=== PATIENT | female | born 2000 | race Hispanic/Latino ===

== ENCOUNTER 2021-10-12 22:03 | Inpatient (IN) | payer OTHER ==
[2021-10-12 22:32] VITALS: BMI 28.6
[2021-10-12 23:02] LABS: Fetal Membranes Rupture No Membranes Rupture (No Rupture)
[2021-10-12] MEDS ORDERED: hydrALAZINE 20 MG/ML VIAL SLOW IVP PRN (23:45)
[2021-10-13 00:07] LABS: Fetal Membranes Rupture RUPTURE DETECTED (No Rupture)
[2021-10-13] MEDS ORDERED: Misoprostol 200 MCG TAB PR PRN (00:27)
[2021-10-13] MEDS ORDERED: Methylergonovine 0.2 MG/ML VIAL IM PRN (00:27)
[2021-10-13] MEDS ORDERED: Carboprost 250 MCG/ML AMP IM PRN (00:27)
[2021-10-13] MEDS ORDERED: Lidocaine 1% (PF) 30 ML VIAL SC PRN (00:27)
[2021-10-13] MEDS ORDERED: Promethazine HCl 25 MG/ML VIAL IM PRN (00:27)
[2021-10-13] MEDS ORDERED: Diphenoxylate HCl/Atropine Tablet PO PRN (00:27)
[2021-10-13] MEDS ORDERED: Ondansetron PF 4 MG/2 ML Vial IVP PRN (00:27)
[2021-10-13] MEDS ORDERED: hydrALAZINE 20 MG/ML VIAL SLOW IVP PRN (00:27)
[2021-10-13] MEDS ORDERED: Lactated Ringer's 1,000 ML IV SCH (00:30)
[2021-10-13] MEDS ORDERED: NS w/ Oxytocin 30 units 500 ML IV SCH ×2 (00:30)
[2021-10-13] MEDS: Misoprostol 100 MCG TAB PO SCH ×4 (02:54→17:42)
[2021-10-13 03:11] LABS: Hemoglobin 11.5 g/dL (12.0-15.5); Mean Corpuscular HGB CONC 33.7 g/dL (32.0-36.0); Mean Corpuscular Hemoglobin 27.6 pg (27.0-33.0); Platelet Count 239 10x3/uL (150-450); Red Blood Cell (RBC) Count 4.16 10x6/uL (3.90-5.03)
[2021-10-13 03:24] LABS: Syphilis Antibody Nonreactive (Nonreactive); Syphilis Antibody Index 0.02 S/CO (<1.00 Non-Reactive)
[2021-10-13 03:25] LABS: Hep B Surf Ag Non-Reactive S/CO (NonReactive)
[2021-10-13 03:26] LABS: HBSAg Index 0.26 S/CO (0-0.99)
[2021-10-13 07:22] LABS: SARS-CoV-2 NAA Rapid Test Not Detected (NotDetected)
[2021-10-14] MEDS: Butorphanol Tartrate 1 MG/ML VIAL SLOW IVP PRN ×2 (02:32→03:45)
[2021-10-14] MEDS ORDERED: Fentanyl 2 mcg/Bup 0.1% Cadd 100 ML ONE (04:36)
[2021-10-14] MEDS ORDERED: Ondansetron PF 4 MG/2 ML Vial IVP PRN ×2 (05:29→14:47)
[2021-10-14] MEDS ORDERED: Moisturizing Cream (Eucerin) 113 GM JAR TOP PRN (05:29)
[2021-10-14] MEDS ORDERED: Lactated Ringer's 500 ML IV PRN (05:29)
[2021-10-14] MEDS ORDERED: Promethazine HCl 25 MG/ML VIAL IM PRN (05:29)
[2021-10-14] MEDS ORDERED: diphenhydrAMINE 50 MG/ML VIAL IVP PRN (05:29)
[2021-10-14] MEDS ORDERED: ePHEDrine Sulfate 50 MG/10 ML VIAL SLOW IVP PRN (05:29)
[2021-10-14] MEDS ORDERED: Naloxone HCl 0.4 mg/ml Vial IVP PRN ×2 (05:29)
[2021-10-14] MEDS ORDERED: Acetaminophen 325 MG TAB PO PRN (05:29)
[2021-10-14] MEDS ORDERED: Communication Order-Pharmacy FS SCH (05:30)
[2021-10-14] MEDS ORDERED: Fentanyl 2 mcg/Bupivacaine 0.1% Cassette 100 ML EPIDURAL SCH (05:30)
[2021-10-14] MEDS ORDERED: Bupivacaine 0.25% HCL 30 ML VIAL ONE (06:00)
[2021-10-14] MEDS ORDERED: ePHEDrine Sulfate 50 MG/10 ML VIAL ONE (06:00)
[2021-10-14] MEDS ORDERED: Lidocaine 1% (PF) 30 ML VIAL ONE (10:41)
[2021-10-14] MEDS ORDERED: HYDROcodone/Acetaminophen 5/325 mg Tablet PO PRN ×2 (14:47)
[2021-10-14] MEDS ORDERED: NS w/ Oxytocin 30 units 500 ML IV SCH (14:47)
[2021-10-14] MEDS ORDERED: Misoprostol 200 MCG TAB VAG PRN (14:47)
[2021-10-14] MEDS ORDERED: Methylergonovine 0.2 MG/ML VIAL IM PRN (14:47)
[2021-10-14] MEDS ORDERED: Bisacodyl 10 MG SUPP PR PRN (14:47)
[2021-10-14] MEDS ORDERED: Milk Of Magnesia 30 ML UDCUP PO PRN (14:47)
[2021-10-14] MEDS ORDERED: Lanolin Ointment 7 GM TUBE TOP PRN (14:47)
[2021-10-14] MEDS ORDERED: Benzocaine-Menthol 82.5 ML CAN TOP PRN (14:47)
[2021-10-14] MEDS ORDERED: hydrALAZINE 20 MG/ML VIAL SLOW IVP PRN (14:47)
[2021-10-14] MEDS: Ibuprofen 800 MG TAB PO SCH ×2 (16:46→23:22)
[2021-10-14] MEDS: Ferrous Sulfate 325 MG TAB PO SCH (16:47)
[2021-10-14] MEDS: Docusate 100 MG CAP PO SCH (21:21)
[2021-10-15] MEDS: Ibuprofen 800 MG TAB PO SCH ×2 (05:29→13:30)
[2021-10-15] MEDS: Ferrous Sulfate 325 MG TAB PO SCH (08:08)
[2021-10-15] MEDS: Docusate 100 MG CAP PO SCH ×2 (08:08→08:34)
[2021-10-15 08:11] VITALS: BP 108/55; TEMP 98.4
== END 2021-10-15 17:18 | disposition home or self-care (01) | DRG 807 ==
LOC: CSHLD/OP 22:03 → CSHLD 10-13 02:26 → CSHPP 10-14 15:00
PROVIDERS: ADMIT Obstetrics & Gynecology; ATTEND Obstetrics & Gynecology
PROC: 10E0XZZ Delivery of Products of Conception, External Approach (ICD-10-PCS; principal; 2021-10-14)
PROC: 0UQMXZZ Repair Vulva, External Approach (ICD-10-PCS; 2021-10-14)
DX: O42.02 Full-term premature rupture of membranes, onset of labor within 24 hours of rupture (principal); Z37.0 Single live birth; Z3A.37 37 weeks gestation of pregnancy; Z20.822 Contact with and (suspected) exposure to COVID-19; O71.82 Other specified trauma to perineum and vulva
CPT/HCPCS: 36415; 51702; 76815; 84112; 85027; 86780; 86850; 86900; 86901; 87340; 99285; J0595; J2590; S0020; U0002